=== PATIENT | female | born 1935 | race Caucasian/White ===

== ENCOUNTER 2016-05-06 11:13 | Outpatient (CLI) | payer OTHER ==
[2015-09-30 03:05] VITALS: BMI 24.7
[2016-05-06 12:10] LABS: CALCIUM 10.2 mg/dL (8.2-10.2); MAGNESIUM 2.2 mg/dL (1.7-2.2)
== END 2016-05-06 11:14 | disposition home or self-care (01) ==
LOC: LAB 11:13
PROVIDERS: ATTEND Nurse Practitioner Family
DX: M81.0 Age-related osteoporosis without current pathological fracture (principal)
CPT/HCPCS: 36415; 82306; 82310; 83735; 84100

== ENCOUNTER 2016-10-23 12:04 | Outpatient (CLI) ==
[2015-09-30 03:05] VITALS: BMI 24.7
[2016-10-23 13:03] LABS: CALCIUM 10.6 mg/dL (8.2-10.2); PHOSPHORUS 4.1 mg/dL (2.8-4.1)
== END 2016-10-23 12:05 | disposition home or self-care (01) ==
LOC: LAB 12:04
PROVIDERS: ATTEND Nurse Practitioner Family
DX: M81.0 Age-related osteoporosis without current pathological fracture (principal)
CPT/HCPCS: 36415; 82306; 82310; 83735; 84100

== ENCOUNTER 2016-11-09 10:42 | Outpatient (CLI) ==
[2015-09-30 03:05] VITALS: BMI 24.7
[2016-11-09] MEDS ORDERED: PROLIA SUBCUT STA (10:58)
[2016-11-09 11:04] VITALS: TEMP 97.4
== END 2016-11-09 10:43 | disposition home or self-care (01) ==
LOC: OPMED 10:42
PROVIDERS: ATTEND Nurse Practitioner Family
DX: M81.0 Age-related osteoporosis without current pathological fracture (principal)
CPT/HCPCS: 96372